=== PATIENT | male | born 1950 | race Caucasian/White ===

== ENCOUNTER 2017-10-27 16:00 | Emergency (ER) | END 2017-10-27 17:14 | disposition home or self-care (01) ==

== ENCOUNTER 2017-10-29 07:53 | Emergency (ER) | END 2017-10-29 10:05 | disposition home or self-care (01) ==

== ENCOUNTER 2017-10-31 07:22 | Emergency (ER) | END 2017-10-31 08:34 | disposition home or self-care (01) ==

== ENCOUNTER 2017-11-02 07:24 | Emergency (ER) | END 2017-11-02 08:17 | disposition home or self-care (01) ==

== ENCOUNTER 2017-11-08 07:34 | Emergency (ER) | END 2017-11-08 08:32 | disposition home or self-care (01) ==